=== PATIENT | male | born 1980 | race Two or more races ===

== ENCOUNTER 2023-02-14 19:00 | Emergency (ER) | payer MEDICAID, SELFPAY ==
[2023-02-14 19:08] VITALS: BP 108/77; PULSE 78; RESP 16; TEMP 36.8; O2SAT 98; BMI 29.9
--- NOTE | 2023-02-14 19:11 | XR_ITS ---
The [address] [address] Patient Name: TIMOTHY IVAN MRN: [id number] date: 1980 Sex: M Assigned Patient Location: ER Current Patient Location: ER Accession/Order Number: [id number] Exam Date: 02/14/2023 19:35 Report Date: 02/14/2023 20:14 At the request of: SILVIA ZAPATA Procedure: XR hand LT min 3V IMAGES REVIEWED: XR hand LT min 3V COMPARISON: None available. CLINICAL INDICATION: puncture wound FINDINGS/IMPRESSION: 1. No radiopaque foreign bodies seen in the soft tissues of the left hand. 2. No evidence of acute osseous abnormality. 3. Chronic deformity of the distal tuft fifth distal phalanx. Electronically authenticated by: PEPITO SCHAEFFER Date: 02/14/2023 20:14
[2023-02-14] MEDS: ADACEL DIPH,PERTUSS(ACELL),TET VAC/PF 0.5 ML ADULT SYRINGE IM (19:25)
[2023-02-14] MEDS: 0.9 % SODIUM CHLORIDE 1,000 ML 1000 ML IV (19:25)
[2023-02-14] MEDS: VANCOMYCIN HCL 1,000 MG in 0.9 % SODIUM CHLORIDE 250 ML 250 MG IV (19:25)
--- NOTE | 2023-02-14 19:31 | PC.NURSE ---
pt presents to ED because pt states that yesterday he punctured right hand with a screw just below middle finger. puncture wound isn't bleeding at this time but is red, painful and swollen as well as pt is having difficulty making a fist with that hand. tetanus not up to date
[2023-02-14 19:34] LABS: Basophils Percent Auto 0.5 % (0.2-2.0); Eosinophils Absolute Auto 0.1 10^3/uL (0.0-0.7); Eosinophils Percent Auto 1.4 % (0.9-7.0); Hematocrit 45.3 % (42.0-54.0); Hemoglobin 15.3 g/dL (14.0-18.0); Immature Granulocytes Abs Auto 0.04 10^3/uL (0.00-0.03); Immature Granulocytes Pct Auto 0.5 % (0.0-0.5); Lymphocytes Absolute Auto 2.8 10^3/uL (1.2-3.8); Lymphocytes Percent Auto 32.4 % (20.5-60.0); Mean Corpuscular HGB Conc 33.8 g/dL (29.9-35.2); Mean Corpuscular Hemoglobin 31.2 pg (25.9-34.0); Mean Corpuscular Volume 92.4 fL (80.0-94.0); Mean Platelet Volume 9.9 fL (9.5-13.5); Monocytes Absolute Auto 0.7 10^3/uL (0.3-0.8); Monocytes Percent Auto 7.8 % (1.7-12.0); Neutrophils Absolute Auto 4.9 10^3/uL (1.4-6.5); Neutrophils Percent Auto 57.4 % (43.0-75.0); Platelet Count 170 10^3/uL (150-450); Red Cell Distribution Width 13.3 % (11.0-15.0); White Blood Count 8.6 10^3/uL (4.0-11.0)
[2023-02-14 19:40] LABS: Anion Gap 14.2; BUN Creatinine Ratio 13.3; Calcium 8.4 mg/dL (8.5-10.1); Carbon Dioxide 23.5 mmol/L (21.0-32.0); Chloride 106 mmol/L (98-107); Estimated GFR (African America >60 (>=60); Estimated GFR (Non-African Ame >60 (>=60); Glucose 95 mg/dL (74-106); Potassium 3.7 mmol/L (3.5-5.1); Sodium 140 mmol/L (136-145)
--- NOTE | 2023-02-14 19:46 | ED.GENADUL1 ---
HPI - General Adult General Chief complaint: Wound/Laceration Stated complaint: LACERATION, PUNCTURE Time Seen by Provider: 02/14/23 19:11 History of Present Illness HPI narrative: 42-year-old male presents with a chief complaint of a puncture wound to left palm. Patient has a superficial puncture wound noted to the palm just inferior to the middle finger. Small area erythema around the area. He states he was using a screw gun and accidentally slipped and scattered part of the screw into his hand yesterday. He is uncertain of his last tetanus.patient states throughout the day days have became more sore now having difficulty moving his fingers. Soft tissue swelling is noted. Related Data Previous Rx's Medication Instructions Recorded amoxicillin 875 mg-potassium 1 tab PO BID #20 tabs 02/14/23 clavulanate 125 mg tablet Allergies Allergy/AdvReac Type Severity Reaction Status Date / Time No Known Drug Allergies Allergy Verified 02/14/23 19:11 Review of Systems ROS Narrative All Systems are negative except as noted/marked.All systems reviewed and otherwise negative Exam Narrative Exam Narrative: Nurses note and vital signs reviewed and patient is not hypoxic. General: The patient appears well and in no apparent distress. Patient is resting comfortably on cart. Skin: Warm, dry, no pallor noted. There is no rash noted. Head: Normocephalic, atraumatic Eye: Normal conjunctiva, no drainage, EOMI. PERRL Musculoskeletal: left hand pain and swelling, soft tissue swelling to the palm of the hand with centralized area erythema measuring 2 x 2 centimeters inferior to the middle finger. Small puncture wound is noted. No drainage or discharge. Increased pain with range of motion. capillary refill distally. Patient is able to squeeze palm but has difficulty due to tenderness Neurological: A&O x4, normal speech Psychiatric: Cooperative Constitutional Vital Signs, click to edit/add: Last Vital Signs Temp 98.3 F 02/14/23 19:08 Pulse 78 02/14/23 19:08 Resp 16 02/14/23 19:08 BP 108/77 02/14/23 19:08 Pulse Ox 98 02/14/23 19:08 Course Vital Signs Vital signs: Vital Signs Temperature 98.3 F 02/14/23 19:08 Pulse Rate 78 02/14/23 19:08 Respiratory Rate 16 02/14/23 19:08 Blood Pressure 108/77 02/14/23 19:08 Pulse Oximetry 98 02/14/23 19:08 Temperature 98.3 F 02/14/23 19:08 Pulse Rate 78 02/14/23 19:08 Respiratory Rate 16 02/14/23 19:08 Blood Pressure 108/77 02/14/23 19:08 Pulse Oximetry 98 02/14/23 19:08 Medical Decision Making Differential Diagnosis Differential Diagnosis: tendinitis, cellulitis, puncture wound Medical Records Medical records reviewed: Yes I reviewed the patient's medical records Lab Data Lab results reviewed: Yes I reviewed the patient's lab results Labs: Lab Results 02/14/23 Range/Units 19:20 WBC 8.6 (4.0-11.0) 10^3/uL RBC 4.90 (4.70-6.10) 10^6/uL Hgb 15.3 (14.0-18.0) g/dL Hct 45.3 (42.0-54.0) % MCV 92.4 (80.0-94.0) fL MCH 31.2 (25.9-34.0) pg MCHC 33.8 (29.9-35.2) g/dL RDW 13.3 (11.0-15.0) % Plt Count 170 (150-450) 10^3/uL MPV 9.9 (9.5-13.5) fL Neut % (Auto) 57.4 (43.0-75.0) % Lymph % (Auto) 32.4 (20.5-60.0) % [place] % (Auto) 7.8 (1.7-12.0) % Eos % (Auto) 1.4 (0.9-7.0) % Baso % (Auto) 0.5 (0.2-2.0) % Neut # (Auto) 4.9 (1.4-6.5) 10^3/uL Lymph # (Auto) 2.8 (1.2-3.8) 10^3/uL [place] # (Auto) 0.7 (0.3-0.8) 10^3/uL Eos # (Auto) 0.1 (0.0-0.7) 10^3/uL Baso # (Auto) 0.0 (0.0-0.1) 10^3/uL Abs Immat Gran (auto) 0.04 H (0.00-0.03) 10^3/uL Imm/Tot Granulo (auto) 0.5 (0.0-0.5) % Sodium 140 (136-145) mmol/L Potassium 3.7 (3.5-5.1) mmol/L Chloride 106 (98-107) mmol/L Carbon Dioxide 23.5 (21.0-32.0) mmol/L Anion Gap 14.2 BUN 11.0 (7.0-18.0) mg/dL Creatinine 0.83 (0.70-1.30) mg/dL Est GFR ( Amer) >60 (>=60) Est GFR (Non-Af Amer) >60 (>=60) BUN/Creatinine Ratio 13.3 Glucose 95 (74-106) mg/dL Calcium 8.4 L (8.5-10.1) mg/dL Imaging Data hand: Attestation: I have reviewed the pertinent imaging results. My impression: no acute foreign body Radiologist's impression: Patient Name: TIMOTHY IVAN MRN: [id number] date: 1980 Sex: M Assigned Patient Location: ER Current Patient Location: ER Accession/Order Number: [id number] Exam Date: 02/14/2023 19:35 Report Date: 02/14/2023 20:14 At the request of: SILVIA ZAPATA Procedure: XR hand LT min 3V IMAGES REVIEWED: XR hand LT min 3V COMPARISON: None available. CLINICAL INDICATION: puncture wound FINDINGS/IMPRESSION: 1. No radiopaque foreign bodies seen in the soft tissues of the left hand. 2. No evidence of acute osseous abnormality. 3. Chronic deformity of the distal tuft fifth distal phalanx. Electronically authenticated by: PEPITO SCHAEFFER Date: 02/14/2023 20:14 Discharge Plan Discharge Chief Complaint: Wound/Laceration Clinical Impression: Puncture wound of hand Patient Disposition: Home, Self-Care Time of Disposition Decision: 21:27 Condition: Good Prescriptions / Home Meds: New amoxicillin-pot clavulanate 875-125 mg tablet 1 tab PO BID Qty: 20 0RF Instructions: Puncture Wound (ED) Stand Alone Forms: Portal Instructions Referrals: LARA ARAJUO [Primary Care Provider] - 1 week Barak Germain MD [Physician] - 1 week
[2023-02-14] MEDS: KETOROLAC TROMETHAMINE 30 MG/ML VIAL IM (19:49)
[2023-02-14] MEDS: CEFTRIAXONE 1,000 MG in 0.9 % SODIUM CHLORIDE 50 ML 100 MG IV (20:27)
--- NOTE | 2023-02-14 20:34 | ED.GENADUL1 ---
HPI - General Adult General Chief complaint: Wound/Laceration Stated complaint: LACERATION, PUNCTURE Time Seen by Provider: 02/14/23 19:11 Related Data Previous Rx's Medication Instructions Recorded amoxicillin 875 mg-potassium 1 tab PO BID #20 tabs 02/14/23 clavulanate 125 mg tablet Allergies Allergy/AdvReac Type Severity Reaction Status Date / Time No Known Drug Allergies Allergy Verified 02/14/23 19:11 Exam Constitutional Vital Signs, click to edit/add: Last Vital Signs Temp 98.3 F 02/14/23 19:08 Pulse 78 02/14/23 19:08 Resp 16 02/14/23 19:08 BP 108/77 02/14/23 19:08 Pulse Ox 98 02/14/23 19:08 Course Vital Signs Vital signs: Vital Signs Temperature 98.3 F 02/14/23 19:08 Pulse Rate 78 02/14/23 19:08 Respiratory Rate 16 02/14/23 19:08 Blood Pressure 108/77 02/14/23 19:08 Pulse Oximetry 98 02/14/23 19:08 Temperature 98.3 F 02/14/23 19:08 Pulse Rate 78 02/14/23 19:08 Respiratory Rate 16 02/14/23 19:08 Blood Pressure 108/77 02/14/23 19:08 Pulse Oximetry 98 02/14/23 19:08 Medical Decision Making [facility] Narrative Medical decision making narrative: patient presented here with accidental puncture wound to his left hand that occurred yesterday. Woke this morning with increased pain and difficulty with flexion-extension of the hand.no acute drainage is no other hand x-ray read negative by radiology. Patient was personally medicated here with IV pink and Rocephin. She will follow-up with orthopedics. Patient's return to the emergency room were discussed. Patient was discharged home with [place] and Augmentin. Follow up with orthopedics on Friday as discussed. Differential Diagnosis Differential Diagnosis: puncture wound, hand pain, Medical Records Medical records reviewed: Yes I reviewed the patient's medical records Lab Data Lab results reviewed: Yes I reviewed the patient's lab results Labs: Lab Results 02/14/23 Range/Units 19:20 WBC 8.6 (4.0-11.0) 10^3/uL RBC 4.90 (4.70-6.10) 10^6/uL Hgb 15.3 (14.0-18.0) g/dL Hct 45.3 (42.0-54.0) % MCV 92.4 (80.0-94.0) fL MCH 31.2 (25.9-34.0) pg MCHC 33.8 (29.9-35.2) g/dL RDW 13.3 (11.0-15.0) % Plt Count 170 (150-450) 10^3/uL MPV 9.9 (9.5-13.5) fL Neut % (Auto) 57.4 (43.0-75.0) % Lymph % (Auto) 32.4 (20.5-60.0) % [place] % (Auto) 7.8 (1.7-12.0) % Eos % (Auto) 1.4 (0.9-7.0) % Baso % (Auto) 0.5 (0.2-2.0) % Neut # (Auto) 4.9 (1.4-6.5) 10^3/uL Lymph # (Auto) 2.8 (1.2-3.8) 10^3/uL [place] # (Auto) 0.7 (0.3-0.8) 10^3/uL Eos # (Auto) 0.1 (0.0-0.7) 10^3/uL Baso # (Auto) 0.0 (0.0-0.1) 10^3/uL Abs Immat Gran (auto) 0.04 H (0.00-0.03) 10^3/uL Imm/Tot Granulo (auto) 0.5 (0.0-0.5) % Sodium 140 (136-145) mmol/L Potassium 3.7 (3.5-5.1) mmol/L Chloride 106 (98-107) mmol/L Carbon Dioxide 23.5 (21.0-32.0) mmol/L Anion Gap 14.2 BUN 11.0 (7.0-18.0) mg/dL Creatinine 0.83 (0.70-1.30) mg/dL Est GFR ( Amer) >60 (>=60) Est GFR (Non-Af Amer) >60 (>=60) BUN/Creatinine Ratio 13.3 Glucose 95 (74-106) mg/dL Calcium 8.4 L (8.5-10.1) mg/dL Discharge Plan Discharge Chief Complaint: Wound/Laceration Clinical Impression: Puncture wound of hand Patient Disposition: Home, Self-Care Time of Disposition Decision: 21:27 Condition: Good Prescriptions / Home Meds: New amoxicillin-pot clavulanate 875-125 mg tablet 1 tab PO BID Qty: 20 0RF Instructions: Puncture Wound (ED) Stand Alone Forms: Portal Instructions Referrals: LARA ARAUJO [Primary Care Provider] - 1 week Barak Germain MD [Physician] - 1 week
[2023-02-14 21:18] VITALS: BP 115/70; PULSE 74; O2SAT 98
== END 2023-02-14 21:20 | disposition home or self-care (01) ==
PROVIDERS: Physician Assistant; Emergency Provider Emergency Medicine; PCP Family Medicine
DX: S61.432A Puncture wound without foreign body of left hand, initial encounter (principal); W26.8XXA Contact with other sharp object(s), not elsewhere classified, initial encounter; Z23 Encounter for immunization
CPT/HCPCS: 36415; 73130; 80048; 85025; 90471; 90715; 96365; 96366; 96368; 96372; 99284; J3370

== ENCOUNTER 2023-02-15 17:01 | Emergency (ER) | payer MEDICAID, SELFPAY ==
[2023-02-15 17:06] VITALS: BP 121/80; PULSE 66; RESP 16; TEMP 36.8; O2SAT 97
--- NOTE | 2023-02-15 17:21 | ED_ITS ---
HPI - General Adult General Chief complaint: Skin/Abscess/Foreign Body Stated complaint: ALLERGIC REACTION Time Seen by Provider: 02/15/23 17:14 Source: patient Mode of arrival: walk-in Limitations: no limitations History of Present Illness HPI narrative: Patient developed a generalized red rash and swelling of the face this afternoon around 12pm. He has not taken any meds today. He came to the ED last night aft er he accidentally punctured the left hand with a drill/screwdriver the day before. He had negative xrays, unremarkable blood testing and received IV rocephin and oral bactrim. he was discharged home with prescription for augmentin but did not fill it yet - the pharmacist recommended that he come back to the ED to be evaluated and to see if his prescribed antibiotic was still appropriate in light of the rash development. No throat or tongue swelling and no difficulty talking. When asked if he had any difficulty breathing he told me maybe a little bit . Lungs are clear with normal RA pulse ox and respiratory rate. Related Data Previous Rx's Medication Instructions Recorded amoxicillin 875 mg-potassium 1 tab PO BID #20 tabs 02/14/23 clavulanate 125 mg tablet prednisone 20 mg tablet 40 mg PO DAILY PRN rash #14 tabs 02/15/23 Allergies Allergy/AdvReac Type Severity Reaction Status Date / Time No Known Drug Allergies Allergy Verified 02/14/23 19:11 Exam Narrative Exam Narrative: Nurses notes and vital signs reviewed and patient is not hypoxic. afebrile General: Well-appearing and in no apparent distress. Skin: Warm, dry, no pallor noted. Diffuse consolidated erythematous rash. Head: Normocephalic, atraumatic. Neck: Supple, non-tender. No lymphadenopathy Eye: Pupils are equal, round and EOMI. No scleral icterus. Ears, Nose, Mouth, and Throat: Oral mucosa is moist, no posterior oropharynx erythema or swelling, uvula is mid-line, no tongue swelling Cardiovascular: Regular Rate and Rhythm without murmur, gallop or rub. Respiratory: No accessory muscle use or respiratory distress. Lungs are clear to auscultation, no wheezing, rales or rhonchi Musculoskeletal: normal ROM, no calf or popliteal tenderness, no lower extremity edema/swelling GI: Abdomen is soft, non-distended. Normal bowel sounds. No tenderness to palpation. No rebound, guarding, or rigidity noted. Neurological: A&O x4. No cranial nerve dysfunction observed. No truncal ataxia. Moves all extremities. Sensation intact. Psychiatric: Cooperative and interactive. Normal mood and affect. Constitutional Vital Signs, click to edit/add: Last Vital Signs Temp 98.3 F 02/15/23 17:06 Pulse 66 02/15/23 17:06 Resp 16 02/15/23 17:06 BP 121/80 02/15/23 17:06 Pulse Ox 97 02/15/23 17:06 O2 Del Method Room Air 02/15/23 17:06 Course Vital Signs Vital signs: Vital Signs Temperature 98.3 F 02/15/23 17:06 Pulse Rate 66 02/15/23 17:06 Respiratory Rate 16 02/15/23 17:06 Blood Pressure 121/80 02/15/23 17:06 Pulse Oximetry 97 02/15/23 17:06 Oxygen Delivery Method Room Air 02/15/23 17:06 Temperature 98.3 F 02/15/23 17:06 Pulse Rate 66 02/15/23 17:06 Respiratory Rate 16 02/15/23 17:06 Blood Pressure 121/80 02/15/23 17:06 Pulse Oximetry 97 02/15/23 17:06 Oxygen Delivery Method Room Air 02/15/23 17:06 Medical Decision Making [facility] Narrative Medical decision making narrative: Patient given IM Solumedrol and oral Benadryl. His rash started to clear up so he was discharged home. I wrote a prescription for prednisone and encouraged him to continue to take the Benadryl. he should hold off on the antibiotic since it isn't clear what he reacted to. He is to watch for sign of infection. Discharge Plan Discharge Chief Complaint: Skin/Abscess/Foreign Body Clinical Impression: Rash due to allergy Patient Disposition: Home, Self-Care Time of Disposition Decision: 18:09 Prescriptions / Home Meds: New prednisone 20 mg tablet 40 mg PO DAILY PRN (Reason: rash) Qty: 14 0RF No Action amoxicillin-pot clavulanate 875-125 mg tablet 1 tab PO BID Qty: 20 0RF Instructions: Acute Rash (ED) Stand Alone Forms: Portal Instructions Referrals: LARA ARAUJO [Primary Care Provider] - 1 week
[2023-02-15] MEDS: DIPHENHYDRAMINE HCL 25 MG CAPSULE PO (17:29)
[2023-02-15] MEDS: METHYLPREDNISOLONE SOD SUCC PF 125 MG/2 ML VIAL IM (17:29)
== END 2023-02-15 18:18 | disposition home or self-care (01) ==
PROVIDERS: Emergency Provider Emergency Medicine; PCP Family Medicine
DX: L23.9 Allergic contact dermatitis, unspecified cause (principal)
CPT/HCPCS: 96372; 99284; J2930

== ENCOUNTER 2023-10-27 11:57 | Emergency (ER) | payer MEDICAID, SELFPAY ==
[2023-10-27] VITALS (21 sets, daily range): BP systolic 118–155; BP diastolic 64–93; PULSE 48–68; TEMP 37; O2SAT 96–99; BMI 30.9
--- NOTE | 2023-10-27 12:19 | ECG_ITS ---
The [place] Test Date: 2023-10-27 Pat Name: TIMOTHY IVAN Department: Room: - Gender: Male [place]: : 1980 Requested By: Order Number: [id number] Reading MD: DARIO NGUYỄN Measurements Intervals [place] Rate: 57 P: 56 [place]: 136 QRS: 76 QRSD: 94 T: 45 QT: 424 QTc: 417 Interpretive Statements 1100 Sinus rhythm 9110 normal ECG Compared to ECG 03/10/2019 10:42:31 No significant changes Electronically Signed On 10-27-2023 22:49:55 EDT by DARIO NGUYỄN
[2023-10-27 13:13] LABS: Basophils Percent Auto 0.3 % (0.2-2.0); Eosinophils Absolute Auto 0.1 10^3/uL (0.0-0.7); Eosinophils Percent Auto 1.2 % (0.9-7.0); Hemoglobin 16.3 g/dL (14.0-18.0); Immature Granulocytes Abs Auto 0.06 10^3/uL (0.00-0.03); Immature Granulocytes Pct Auto 0.5 % (0.0-0.5); Lymphocytes Absolute Auto 2.3 10^3/uL (1.2-3.8); Lymphocytes Percent Auto 20.3 % (20.5-60.0); Mean Corpuscular Hemoglobin 30.5 pg (25.9-34.0); Mean Corpuscular Volume 89.9 fL (80.0-94.0); Mean Platelet Volume 10.2 fL (9.5-13.5); Monocytes Absolute Auto 0.7 10^3/uL (0.3-0.8); Monocytes Percent Auto 6.4 % (1.7-12.0); Neutrophils Percent Auto 71.3 % (43.0-75.0); Platelet Count 159 10^3/uL (150-450); Red Blood Count 5.34 10^6/uL (4.70-6.10); Red Cell Distribution Width 13.2 % (11.0-15.0); White Blood Count 11.3 10^3/uL (4.0-11.0)
--- NOTE | 2023-10-27 13:23 | ED.ABDPAIN1 ---
Documented by User: Disha Kee 10/27/23 16:18 HPI - Abdominal Pain General Chief Complaint: Abdominal Pain Stated Complaint: UPPER ABDOMINAL PAIN Time Seen by Provider: 10/27/23 13:23 Source: patient Mode of arrival: walk-in History of Present Illness HPI narrative: 43 year old male presents to the ED for mid abd pain. Today it is to the upper abdomen, other times the lower abdomen. Onset was 3 weeks ago. Denies fever, chills, CP, SOB, cough, urinary sx. Reports diarrhea. Rates his pain 10/26. Related Data Previous Rx's ?Medication ?Instructions ?Recorded amoxicillin 875 mg-potassium 1 tab PO BID #20 tabs 02/14/23 clavulanate 125 mg tablet prednisone 20 mg tablet 40 mg (2 x 20 mg) PO DAILY PRN 02/15/23 rash #14 tabs famotidine 20 mg tablet (Pepcid) 20 mg PO BID 14 days #28 tabs 10/27/23 hydrocodone 5 mg-acetaminophen 325 1 tab PO Q8H PRN pain 4 days #12 10/27/23 mg tablet tabs Allergies Allergy/AdvReac Type Severity Reaction Status Date / Time No Known Drug Allergies Allergy Verified 02/14/23 19:11 Review of Systems ROS Constitutional Denies: fever or chills Ears, nose, mouth, and throat Denies: neck pain Cardiovascular Denies: chest pain Respiratory Denies: shortness of breath or cough Gastrointestinal Reports: abdominal pain and diarrhea; Denies: nausea or vomiting Genitourinary Denies: painful urination, urinary frequency or urinary urgency Integumentary/Breast Denies: rash Neurological Denies: headache Exam Constitutional Vital Signs, click to edit/add: Last Vital Signs Temp 98.6 F 10/27/23 12:10 Pulse 68 10/27/23 16:05 Resp 16 10/27/23 16:05 BP 128/64 10/27/23 16:05 Pulse Ox 99 10/27/23 16:05 O2 Del Method Room Air 10/27/23 12:10 Common normals: no apparent distress and oriented x3 General appearance: cooperative HENMT Mouth: oral and palatal mucosa normal and tongue normal Eye Common normals: conjunctivae normal and no scleral icterus Neck & C-Spine Common normals: supple Chest Chest: symmetrical chest wall rise Respiratory Common normals: normal respiratory effort and clear to auscultation bilaterally Effort & inspection: able to speak in complete sentences Cardio Common normals: regular rate and regular rhythm GI Common normals: Normal to inspection, nondistended, normoactive bowel sounds present and soft to palpation Palpation: tender Details: epigastric and LUQ Neuro Common normals: oriented x3 and moves all extremities Sensorium/orientation: awake and alert Course Vital Signs Vital signs: Vital Signs Temperature 98.6 F 10/27/23 12:10 Pulse Rate 61 10/27/23 12:10 Respiratory Rate 18 10/27/23 12:10 Blood Pressure 118/78 10/27/23 12:10 Pulse Oximetry 98 10/27/23 12:10 Oxygen Delivery Method Room Air 10/27/23 12:10 Temperature 98.6 F 10/27/23 12:10 Pulse Rate 68 10/27/23 16:05 Respiratory Rate 16 10/27/23 16:05 Blood Pressure 128/64 10/27/23 16:05 Pulse Oximetry 99 10/27/23 16:05 Oxygen Delivery Method Room Air 10/27/23 12:10 MDM - Abdominal Pain MDM Narrative Medical decision making narrative: Laboratory studies were unremarkable. CT scan showed: CT abdomen and CT pelvis studies demonstrate mild to moderate fatty infiltration of the liver. Correlate for mild enterocolitis. Mild colon diverticulosis without evidence of acute diverticulitis. Interval moderate size anterior pelvic wall hernia lateral to the rectus abdominis muscle, this may represent a spigelian type hernia. No evidence of associated bowel content. Nonobstructive right renal calculus. Tiny fat filled umbilical hernia similar to the prior exam. Findings were discussed with the patient and his family member. He was given medication for his discomfort. OARRS was reviewed. prescriptions were provided for Pepcid and norco. Follow up with pcp, GI, and surgery for a recheck, further evaluation and treatment. Differential Diagnosis Differential diagnosis: Likely abdominal pain, diverticulitis, gastroenteritis and small bowel obstruction Medical Records Attestation: I reviewed the patient's medical records. Lab Data Attestation: I reviewed the patient's lab results. Labs: Lab Results 10/27/23 10/27/23 Range/Units 12:57 14:00 WBC 11.3 H (4.0-11.0) 10^3/uL RBC 5.34 (4.70-6.10) 10^6/uL Hgb 16.3 (14.0-18.0) g/dL Hct 48.0 (42.0-54.0) % MCV 89.9 (80.0-94.0) fL MCH 30.5 (25.9-34.0) pg MCHC 34.0 (29.9-35.2) g/dL RDW 13.2 (11.0-15.0) % Plt Count 159 (150-450) 10^3/uL MPV 10.2 (9.5-13.5) fL Neut % (Auto) 71.3 (43.0-75.0) % Lymph % (Auto) 20.3 L (20.5-60.0) % [place] % (Auto) 6.4 (1.7-12.0) % Eos % (Auto) 1.2 (0.9-7.0) % Baso % (Auto) 0.3 (0.2-2.0) % Neut # (Auto) 8.0 H (1.4-6.5) 10^3/uL Lymph # (Auto) 2.3 (1.2-3.8) 10^3/uL [place] # (Auto) 0.7 (0.3-0.8) 10^3/uL Eos # (Auto) 0.1 (0.0-0.7) 10^3/uL Baso # (Auto) 0.0 (0.0-0.1) 10^3/uL Abs Immat Gran (auto) 0.06 H (0.00-0.03) 10^3/uL Imm/Tot Granulo (auto) 0.5 (0.0-0.5) % Sodium 142 (136-145) mmol/L Potassium 4.2 (3.5-5.1) mmol/L Chloride 106 (98-107) mmol/L Carbon Dioxide 26.9 (21.0-32.0) mmol/L Anion Gap 13.3 BUN 14.0 (7.0-18.0) mg/dL Creatinine 0.80 (0.70-1.30) mg/dL Est GFR ( Amer) >60 (>=60) Est GFR (Non-Af Amer) >60 (>=60) BUN/Creatinine Ratio 17.5 Glucose 97 (74-106) mg/dL Calcium 9.0 (8.5-10.1) mg/dL Total Bilirubin 1.0 (0.2-1.0) mg/dL AST 28 (15-37) U/L ALT 34 (16-63) U/L Alkaline Phosphatase 131 H (46-116) U/L Troponin I High Sens <4.0 L (4.0-76.1) pg/mL Total Protein 7.3 (6.4-8.2) g/dL Albumin 3.7 (3.4-5.0) g/dL Globulin 3.6 g/dL Albumin/Globulin Ratio 1.0 Lipase 46.0 (16.0-77.0) U/L Urine Color Yellow (YELLOW) Urine Clarity Clear (CLEAR) Urine pH 6.0 (5.0-9.0) Ur Specific Leonard 1.025 (1.005-1.025) Urine Protein Negative (NEG/TRACE) mg/dL Urine Glucose (UA) Negative (NEGATIVE) mg/dL Urine Ketones Negative (NEGATIVE) mg/dL Urine Occult Blood Negative (NEGATIVE) Urine Nitrite Negative (NEGATIVE) Urine Bilirubin Negative (NEGATIVE) Urine Urobilinogen 1.0 (0.2-1.0) EU/dL Ur Leukocyte Esterase Negative (NEGATIVE) Urine RBC 0-2 (0-2) #/HPF Urine WBC 0-2 A (NONE SEEN) #/HPF Ur Squamous Epith Cells None seen (NONE/RARE) #/LPF Urine Crystals None seen (None Seen) #/HPF Urine Bacteria None seen (NONE SEEN) #/HPF Urine Casts None seen (NONE SEEN) #/LPF Urine Mucus None seen (NONE SEEN) Ur Culture Indicated? No Imaging Data CT scan - abdomen: Attestation: I have reviewed the pertinent imaging results. Radiologist's impression: ITS Impressions Abdomen/Pelvis CT 10/27/23 13:25 IMPRESSION: CT abdomen and CT pelvis studies demonstrate mild to moderate fatty infiltration of the liver. Correlate for mild enterocolitis. Mild colon diverticulosis without evidence of acute diverticulitis. Interval moderate size anterior pelvic wall hernia lateral to the rectus abdominis muscle, this may represent a spigelian type hernia. No evidence of associated bowel content. Nonobstructive right renal calculus. Tiny fat filled umbilical hernia similar to the prior exam. Electronically authenticated by: EVANGELINA BARKER Date: 10/27/2023 14:40 ECG Data Attestation: ?I have reviewed the pertinent ECG results. (EKG was reviewed by the attending physician. It showed sinus rhythm at a rate of 57. No acute ST segment changes. ) Interpretation: Measurements Intervals [place] Rate: 57 P: 56 [place]: 136 QRS: 76 QRSD: 94 T: 45 QT: 424 QTc: 417 Interpretive Statements 1100 Sinus rhythm 9110 normal ECG No previous ECG available for comparison Discharge Plan Discharge Stand Alone Forms: Portal Instructions Chief Complaint: Abdominal Pain Clinical Impression: Abdominal pain, Enterocolitis, Fatty liver, Abdominal wall hernia, Hernia, umbilical Patient Disposition: Home, Self-Care Time of Disposition Decision: 15:26 Condition: Good Mode of Transportation: Private Vehicle Prescriptions / Home Meds: New famotidine [Pepcid] 20 mg tablet 20 mg PO BID 14 Days Qty: 28 0RF hydrocodone-acetaminophen 5-325 mg tablet 1 tab PO Q8H PRN (Reason: pain) 4 Days Qty: 12 0RF No Action amoxicillin-pot clavulanate 875-125 mg tablet 1 tab PO BID Qty: 20 0RF prednisone 20 mg tablet 40 mg PO DAILY PRN (Reason: rash) Qty: 14 0RF Print Language: Beninese Instructions: Umbilical Hernia (ED), Non-Alcoholic Fatty Liver Disease (ED), Abdominal Pain (ED), Colitis (ED), Enteritis (ED) Referrals: YARELIS RAND [Physician] - 1 week Matt SALDAÑA [Physician] - 1 week Oscar Farris MD [Physician] - 1 week LARA ARAUJO [Primary Care Provider] - 1 week Discharge Date/Time: 10/27/23 16:07 Documented by User: Joe Reyes MD 10/27/23 20:07 HPI - Abdominal Pain General Chief Complaint: Abdominal Pain Stated Complaint: UPPER ABDOMINAL PAIN Time Seen by Provider: 10/27/23 13:23 Related Data Previous Rx's ?Medication ?Instructions ?Recorded amoxicillin 875 mg-potassium 1 tab PO BID #20 tabs 02/14/23 clavulanate 125 mg tablet prednisone 20 mg tablet 40 mg (2 x 20 mg) PO DAILY PRN 02/15/23 rash #14 tabs famotidine 20 mg tablet (Pepcid) 20 mg PO BID 14 days #28 tabs 10/27/23 hydrocodone 5 mg-acetaminophen 325 1 tab PO Q8H PRN pain 4 days #12 10/27/23 mg tablet tabs Allergies Allergy/AdvReac Type Severity Reaction Status Date / Time No Known Drug Allergies Allergy Verified 02/14/23 19:11 Exam Constitutional Vital Signs, click to edit/add: Last Vital Signs Temp 98.6 F 10/27/23 12:10 Pulse 68 10/27/23 16:05 Resp 16 10/27/23 16:05 BP 128/64 10/27/23 16:05 Pulse Ox 99 10/27/23 16:05 O2 Del Method Room Air 10/27/23 12:10 Course Vital Signs Vital signs: Vital Signs Temperature 98.6 F 10/27/23 12:10 Pulse Rate 61 10/27/23 12:10 Respiratory Rate 18 10/27/23 12:10 Blood Pressure 118/78 10/27/23 12:10 Pulse Oximetry 98 10/27/23 12:10 Oxygen Delivery Method Room Air 10/27/23 12:10 Temperature 98.6 F 10/27/23 12:10 Pulse Rate 68 10/27/23 16:05 Respiratory Rate 16 10/27/23 16:05 Blood Pressure 128/64 10/27/23 16:05 Pulse Oximetry 99 10/27/23 16:05 Oxygen Delivery Method Room Air 10/27/23 12:10 MDM - Abdominal Pain MDM Narrative Medical decision making narrative: Laboratory studies were unremarkable. CT scan showed: CT abdomen and CT pelvis studies demonstrate mild to moderate fatty infiltration of the liver. Correlate for mild enterocolitis. Mild colon diverticulosis without evidence of acute diverticulitis. Interval moderate size anterior pelvic wall hernia lateral to the rectus abdominis muscle, this may represent a spigelian type hernia. No evidence of associated bowel content. Nonobstructive right renal calculus. Tiny fat filled umbilical hernia similar to the prior exam. Findings were discussed with the patient and his family member. He was given medication for his discomfort. OARRS was reviewed. prescriptions were provided for Pepcid and norco. Follow up with pcp, GI, and surgery for a recheck, further evaluation and treatment. I, Dr Reyes, have reviewed the above progress note and course of action in the ER; agree with the above. I have gone over history and physical, and discussed disposition and treatment plan with the patient. Lab Data Labs: Lab Results 10/27/23 10/27/23 Range/Units 12:57 14:00 WBC 11.3 H (4.0-11.0) 10^3/uL RBC 5.34 (4.70-6.10) 10^6/uL Hgb 16.3 (14.0-18.0) g/dL Hct 48.0 (42.0-54.0) % MCV 89.9 (80.0-94.0) fL MCH 30.5 (25.9-34.0) pg MCHC 34.0 (29.9-35.2) g/dL RDW 13.2 (11.0-15.0) % Plt Count 159 (150-450) 10^3/uL MPV 10.2 (9.5-13.5) fL Neut % (Auto) 71.3 (43.0-75.0) % Lymph % (Auto) 20.3 L (20.5-60.0) % [place] % (Auto) 6.4 (1.7-12.0) % Eos % (Auto) 1.2 (0.9-7.0) % Baso % (Auto) 0.3 (0.2-2.0) % Neut # (Auto) 8.0 H (1.4-6.5) 10^3/uL Lymph # (Auto) 2.3 (1.2-3.8) 10^3/uL [place] # (Auto) 0.7 (0.3-0.8) 10^3/uL Eos # (Auto) 0.1 (0.0-0.7) 10^3/uL Baso # (Auto) 0.0 (0.0-0.1) 10^3/uL Abs Immat Gran (auto) 0.06 H (0.00-0.03) 10^3/uL Imm/Tot Granulo (auto) 0.5 (0.0-0.5) % Sodium 142 (136-145) mmol/L Potassium 4.2 (3.5-5.1) mmol/L Chloride 106 (98-107) mmol/L Carbon Dioxide 26.9 (21.0-32.0) mmol/L Anion Gap 13.3 BUN 14.0 (7.0-18.0) mg/dL Creatinine 0.80 (0.70-1.30) mg/dL Est GFR ( Amer) >60 (>=60) Est GFR (Non-Af Amer) >60 (>=60) BUN/Creatinine Ratio 17.5 Glucose 97 (74-106) mg/dL Calcium 9.0 (8.5-10.1) mg/dL Total Bilirubin 1.0 (0.2-1.0) mg/dL AST 28 (15-37) U/L ALT 34 (16-63) U/L Alkaline Phosphatase 131 H (46-116) U/L Troponin I High Sens <4.0 L (4.0-76.1) pg/mL Total Protein 7.3 (6.4-8.2) g/dL Albumin 3.7 (3.4-5.0) g/dL Globulin 3.6 g/dL Albumin/Globulin Ratio 1.0 Lipase 46.0 (16.0-77.0) U/L Urine Color Yellow (YELLOW) Urine Clarity Clear (CLEAR) Urine pH 6.0 (5.0-9.0) Ur Specific Leonard 1.025 (1.005-1.025) Urine Protein Negative (NEG/TRACE) mg/dL Urine Glucose (UA) Negative (NEGATIVE) mg/dL Urine Ketones Negative (NEGATIVE) mg/dL Urine Occult Blood Negative (NEGATIVE) Urine Nitrite Negative (NEGATIVE) Urine Bilirubin Negative (NEGATIVE) Urine Urobilinogen 1.0 (0.2-1.0) EU/dL Ur Leukocyte Esterase Negative (NEGATIVE) Urine RBC 0-2 (0-2) #/HPF Urine WBC 0-2 A (NONE SEEN) #/HPF Ur Squamous Epith Cells None seen (NONE/RARE) #/LPF Urine Crystals None seen (None Seen) #/HPF Urine Bacteria None seen (NONE SEEN) #/HPF Urine Casts None seen (NONE SEEN) #/LPF Urine Mucus None seen (NONE SEEN) Ur Culture Indicated? No Imaging Data CT scan - abdomen: Radiologist's impression: ITS Impressions Abdomen/Pelvis CT 10/27/23 13:25 IMPRESSION: CT abdomen and CT pelvis studies demonstrate mild to moderate fatty infiltration of the liver. Correlate for mild enterocolitis. Mild colon diverticulosis without evidence of acute diverticulitis. Interval moderate size anterior pelvic wall hernia lateral to the rectus abdominis muscle, this may represent a spigelian type hernia. No evidence of associated bowel content. Nonobstructive right renal calculus. Tiny fat filled umbilical hernia similar to the prior exam. Electronically authenticated by: EVANGELINA BARKER Date: 10/27/2023 14:40 Discharge Plan Discharge Stand Alone Forms: Portal Instructions Chief Complaint: Abdominal Pain Clinical Impression: Abdominal pain, Enterocolitis, Fatty liver, Abdominal wall hernia, Hernia, umbilical Patient Disposition: Home, Self-Care Time of Disposition Decision: 15:26 Condition: Good Mode of Transportation: Private Vehicle Prescriptions / Home Meds: New famotidine [Pepcid] 20 mg tablet 20 mg PO BID 14 Days Qty: 28 0RF hydrocodone-acetaminophen 5-325 mg tablet 1 tab PO Q8H PRN (Reason: pain) 4 Days Qty: 12 0RF No Action amoxicillin-pot clavulanate 875-125 mg tablet 1 tab PO BID Qty: 20 0RF prednisone 20 mg tablet 40 mg PO DAILY PRN (Reason: rash) Qty: 14 0RF Print Language: Beninese Instructions: Umbilical Hernia (ED), Non-Alcoholic Fatty Liver Disease (ED), Abdominal Pain (ED), Colitis (ED), Enteritis (ED) Referrals: YARELIS RAND [Physician] - 1 week Matt SALDAÑA [Physician] - 1 week Oscar Farris MD [Physician] - 1 week LARA ARAUJO [Primary Care Provider] - 1 week Discharge Date/Time: 10/27/23 16:07
--- NOTE | 2023-10-27 13:25 | CT_ITS ---
The [address] [address] Patient Name: TIMOTHY IVAN MRN: [id number] date: 1980 Sex: M Assigned Patient Location: ER Current Patient Location: ER Accession/Order Number: [id number] Exam Date: 10/27/2023 13:42 Report Date: 10/27/2023 14:40 At the request of: MATHEUS HYATT Procedure: CT abdomen pelvis w con EXAM: CT abdomen pelvis w con HISTORY: Pain COMPARISON: CT abdomen and CT pelvis studies dated 06/08/2015 TECHNIQUE: CT abdomen and CT pelvis studies were performed with the use of intravenous contrast. Multiple axial images were obtained. Reformatted coronal and sagittal images were obtained and reviewed. FINDINGS: Mild atelectatic and/or fibrotic changes in the visualized lower lung wol[place]. Views of the liver and spleen fail to demonstrate evidence of focal mass in either organ. Mild to moderate fatty infiltration of the liver. Food debris and fluid in the stomach which is otherwise grossly unremarkable in appearance. Mild wall thickening of the ascending and transverse colon with mild wall thickening of portions of the small bowel. Areas of retained fluid within small bowel loops. No evidence of small bowel or colonic dilatation. Correlate for mild enterocolitis. Visualized vascular structures appear grossly intact. No evidence of adenopathy in the retroperitoneum. No evidence of obstructive uropathy. No obvious renal mass. There is a 4 mm nonobstructive calculus in the medial midportion of the right kidney not seen previously. Tiny fat filled umbilical hernia without bowel content similar to prior study. Pelvis: There is an interval moderate size anterior pelvic wall hernia lateral to the rectus abdominis muscle which may represent a spigelian hernia. No evidence of bowel content. Hernia sac measures approximately 4.4 x 5.4 x 1.9 cm in longitudinal, transverse and AP dimensions. Orifice of the hernia as seen on series 3 axial image 85 measures approximately 2 cm. Bladder appears grossly unremarkable. Prostate gland is mild to moderately enlarged with associated calcifications present. Perirectal fat planes appear grossly intact. Mild diverticulosis of the sigmoid colon, no evidence of acute diverticulitis. Visualized vascular structures appear grossly intact. No evidence of adenopathy. The appendix is not identified, correlate for prior appendectomy. Mild degenerative changes visualized dorsal spine and the lumbar spine. CT/CT abdomen pelvis w con IMPRESSION: CT abdomen and CT pelvis studies demonstrate mild to moderate fatty infiltration of the liver. Correlate for mild enterocolitis. Mild colon diverticulosis without evidence of acute diverticulitis. Interval moderate size anterior pelvic wall hernia lateral to the rectus abdominis muscle, this may represent a spigelian type hernia. No evidence of associated bowel content. Nonobstructive right renal calculus. Tiny fat filled umbilical hernia similar to the prior exam. Electronically authenticated by: EVANGELINA BARKER Date: 10/27/2023 14:40
[2023-10-27 13:30] LABS: Alanine Aminotransferase 34 U/L (16-63); Albumin Level 3.7 g/dL (3.4-5.0); Alkaline Phosphatase 131 U/L (46-116); Anion Gap 13.3; Aspartate Amino Transferase 28 U/L (15-37); BUN Creatinine Ratio 17.5; Carbon Dioxide 26.9 mmol/L (21.0-32.0); Chloride 106 mmol/L (98-107); Estimated GFR (African America >60 (>=60); Estimated GFR (Non-African Ame >60 (>=60); Globulin 3.6 g/dL; Glucose 97 mg/dL (74-106); Potassium 4.2 mmol/L (3.5-5.1); Sodium 142 mmol/L (136-145); Total Protein 7.3 g/dL (6.4-8.2); Troponin I High Sensitivity <4.0 pg/mL (4.0-76.1)
[2023-10-27] MEDS: 0.9 % SODIUM CHLORIDE 1,000 ML 1000 ML IV (14:18)
[2023-10-27 14:23] LABS: Bilirubin Urine NEGATIVE (NEGATIVE); Blood Urine NEGATIVE (NEGATIVE); Clarity Urine CLEAR (CLEAR); Color Urine YELLOW (YELLOW); Glucose Urine UA NEGATIVE (NEGATIVE); Ketones Urine NEGATIVE (NEGATIVE); Leukocyte Esterase Urine NEGATIVE (NEGATIVE); Nitrite Urine NEGATIVE (NEGATIVE); Protein Urine NEGATIVE (NEG/TRACE); Specific Gravity Urine 1.025 (1.005-1.025)
[2023-10-27 14:33] LABS: Bacteria Urine NONE SEEN #/HPF (NONE SEEN); Cast Seen? NONE SEEN #/LPF (NONE SEEN); Crystals Seen? None Seen #/HPF (None Seen); Mucus Urine NONE SEEN (NONE SEEN); RBC Urine 0-2 #/HPF (0-2); Squamous Epithelial Cell Urine NONE SEEN #/LPF (NONE/RARE); Urine Culture Indicated NO; WBC Urine 0-2 #/HPF (NONE SEEN)
[2023-10-27] MEDS: MORPHINE SULFATE 2 MG/ML SYRINGE IV (15:42)
[2023-10-27] MEDS: ONDANSETRON PF 4 MG/2 ML VIAL IV (15:42)
[2023-10-27] MEDS: FAMOTIDINE/PF 20 MG/2 ML VIAL IV (15:42)
== END 2023-10-27 16:07 | disposition home or self-care (01) ==
PROVIDERS: Emergency Provider Emergency Medicine; PCP Family Medicine
DX: K52.9 Noninfective gastroenteritis and colitis, unspecified (principal); R10.10 Upper abdominal pain, unspecified; K76.0 Fatty (change of) liver, not elsewhere classified; K57.30 Diverticulosis of large intestine without perforation or abscess without bleeding; K42.9 Umbilical hernia without obstruction or gangrene; K43.9 Ventral hernia without obstruction or gangrene
CPT/HCPCS: 36415; 74177; 80053; 81001; 83690; 84484; 85025; 93005; 96361; 96374; 96375; 99285; Q9967